=== PATIENT | female | born 1980 | race Caucasian/White ===

== ENCOUNTER 2018-08-10 21:38 | Emergency (ER) | payer MEDICAID, SELFPAY ==
[2018-08-10] VITALS (15 sets, daily range): BP systolic 103–144; BP diastolic 54–98; PULSE 77–102; RESP 4–21; TEMP 36.7–37; O2SAT 98–100
--- NOTE | 2018-08-10 21:43 | W.ED.GENAD ---
Discharge Plan Disposition Patient Disposition: HOME Condition: Stable Discharge Details Chief Complaint: Allergic Clinical Impression: Anaphylaxis Primary Care Provider: Caroline Andrade ED Provider: Otis Camejo Home Meds and New Rx's Prescriptions: New prednisone 20 mg tablet 60 mg PO DAILY 4 Days Qty: 12 RF: 0 Continued pantoprazole 40 mg Tablet,Delayed Release (Dr/Ec) 40 mg PO DAILY RF: 0 Discharge Instructions Instructions: Anaphylaxis (ED) Additional Instructions: you were treated for anaphylaxis likely from something in your food use your epi pen if you have difficulty breathing or abdominal pain/vomit with itching or a rash and return to the emergency department follow up with your primary care provider within a week and discuss having allergy testing you can take benadryl as needed for itching sensations, follow dosing in structions on packaging Medical Decision Making 37 yo female who has multiple food allergies comes in with chief complaint of dyspnea, feeling like throat closing and itching all over. She did not have her epi pen so came here. she has diffuse wheezing bilaterally on exam, denies vomit, doesn't have a rash but is itching all over, no drooling and is able to talk. Suspect anaphylaxis, will tx with IM epi, albuterol, steroids, h2 blockers and diphenydramine and monitor. pt feeling better, breathing improved and wheezing all gone, will continue to monitor pt remains stable, talkingin full sentences, normal respirations now. will continue to monitor pt remains stable, normal vitals and lung exam and speaking in full sentences. She has her epi pen now and would like d/c which I feel is reasonable. Will d/c home and advised f/u with pcp and return precautions Differential Diagnosis anaphylaxis, asthma HPI General Mode of arrival: ambulatory. Date/Time Provider Initiated Documentation: 08/10/18 21:39. Limitations to Documentation: no limitations. Information obtained by: patient. History of Present Illness 37 year old F presents to the emergency department with the chief complaint of difficulty breathing, described as moderate, Patient started experiencing this hour(s) (1) and it has been constant. No relieving factors improve symptom(s), No exacerbating factors reported . Patient notes other (itching). Patient did receive the following treatments prior to arrival, none Related Data Home Medications Medication Instructions Recorded Confirmed pantoprazole 40 mg PO DAILY 06/11/19 06/11/19 prednisone 60 mg PO DAILY 4 Days #12 tab 08/10/18 Previous Rx's Medication Instructions Recorded prednisone 60 mg PO DAILY 4 Days #12 tab 08/10/18 Review of Systems Review of Systems All systems reviewed & are unremarkable except as noted in HPI and below Constitutional Denies chills, Denies fever(s) and Denies weakness Gastrointestinal Denies vomiting Integumentary/Breasts Denies rash Neurologic Denies weakness PFSH Medical History GERD (gastroesophageal reflux disease) (Chronic) Social History Smoking/Tobacco Use Status: Current every day Tobacco Type: cigarettes Smoking cigarettes per day: 6 Alcohol Intake: former Drug use: Never Substance use type: does not use Do you feel safe at home: Yes Do you feel safe in your relationship?: Yes Exam Const General: other (dyspnea, wheezing) Orientation: alert HENMT Head: normal to inspection Ears: external ears normal General nose exam: external nose normal Mouth: moist mucous membranes Eyes General: appearance normal, both eyes and all related structures Neck Neck: normal visual inspection Resp Effort & Inspection: audible wheezes Cardio Jugular venous pressure: no JVD Skin General skin exam: no rashes or lesions noted Neuro General: alert and oriented x3 Extrem General: normal to inspection Psych Mental Status: mental status grossly normal Critical Care Time Critical Care Time: Yes Total Critical Care Time: 60 (minutes) Attestation: time spent administering IM epinephrine, hd monitoring and frequent reassessment in a patient with anaphylaxis and potential to deteriorate at any time
--- NOTE | 2018-08-10 21:46 | ED.GENADUL_ITS ---
Discharge Plan Disposition Patient Disposition: HOME Condition: Stable Discharge Details Chief Complaint: Allergic Clinical Impression: Anaphylaxis Primary Care Provider: Caroline Andrade ED Provider: Otis Camejo Home Meds and New Rx's Prescriptions: New prednisone 20 mg tablet 60 mg PO DAILY 4 Days Qty: 12 RF: 0 Continued pantoprazole 40 mg Tablet,Delayed Release (Dr/Ec) 40 mg PO DAILY RF: 0 Discharge Instructions Instructions: Anaphylaxis (ED) Additional Instructions: you were treated for anaphylaxis likely from something in your food use your epi pen if you have difficulty breathing or abdominal pain/vomit with itching or a rash and return to the emergency department follow up with your primary care provider within a week and discuss having allergy testing you can take benadryl as needed for itching sensations, follow dosing in structions on packaging Medical Decision Making 37 yo female who has multiple food allergies comes in with chief complaint of dyspnea, feeling like throat closing and itching all over. She did not have her epi pen so came here. she has diffuse wheezing bilaterally on exam, denies vomit, doesn't have a rash but is itching all over, no drooling and is able to talk. Suspect anaphylaxis, will tx with IM epi, albuterol, steroids, h2 blockers and diphenydramine and monitor. pt feeling better, breathing improved and wheezing all gone, will continue to monitor pt remains stable, talkingin full sentences, normal respirations now. will continue to monitor pt remains stable, normal vitals and lung exam and speaking in full sentences. She has her epi pen now and would like d/c which I feel is reasonable. Will d/c home and advised f/u with pcp and return precautions Differential Diagnosis anaphylaxis, asthma HPI General Mode of arrival: ambulatory . Date/Time Provider Initiated Documentation: 08/10/18 21:39 . Limitations to Documentation: no limitations . Information obtained by: patient . History of Present Illness 37 year old F presents to the emergency department with the chief complaint of difficulty breathing, described as moderate, Patient started experiencing this hour(s) (1) and it has been constant. No relieving factors improve symptom(s), No exacerbating factors reported . Patient notes other (itching). Patient did receive the following treatments prior to arrival, none Related Data Home Medications Medication Instructions Recorded Confirmed pantoprazole 40 mg PO DAILY 06/11/19 06/11/19 prednisone 60 mg PO DAILY 4 Days #12 tab 08/10/18 Previous Rx's Medication Instructions Recorded prednisone 60 mg PO DAILY 4 Days #12 tab 08/10/18 Review of Systems Review of Systems All systems reviewed & are unremarkable except as noted in HPI and below Constitutional Denies chills, Denies fever(s) and Denies weakness Gastrointestinal Denies vomiting Integumentary/Breasts Denies rash Neurologic Denies weakness PFSH Medical History GERD (gastroesophageal reflux disease) (Chronic) Social History Smoking/Tobacco Use Status: Current every day Tobacco Type: cigarettes Smoking cigarettes per day: 6 Alcohol Intake: former Drug use: Never Substance use type: does not use Do you feel safe at home: Yes Do you feel safe in your relationship?: Yes Exam Const General: other (dyspnea, wheezing) Orientation: alert HENMT Head: normal to inspection Ears: external ears normal General nose exam: external nose normal Mouth: moist mucous membranes Eyes General: appearance normal, both eyes and all related structures Neck Neck: normal visual inspection Resp Effort & Inspection: audible wheezes Cardio Jugular venous pressure: no JVD Skin General skin exam: no rashes or lesions noted Neuro General: alert and oriented x3 Extrem General: normal to inspection Psych Mental Status: mental status grossly normal Critical Care Time Critical Care Time: Yes Total Critical Care Time: 60 (minutes) Attestation: time spent administering IM epinephrine, hd monitoring and frequent reassessment in a patient with anaphylaxis and potential to deteriorate at any time
[2018-08-10] MEDS: Normal Saline 1,000 ML 1000 ML IV (21:47)
[2018-08-10] MEDS: methylPREDNISolone SUCC 125 MG VIAL IVP (21:47)
[2018-08-10] MEDS: diphenhydrAMINE 50 MG/ML VIAL 25 MG IVP (21:48)
[2018-08-10] MEDS: EPINEPHrine 1 MG/ML AMP pres-free 0.3 MG IM (21:49)
[2018-08-10] MEDS: Albuterol 2.5 MG/3 ML INH SOLN VIAL UPD (21:51)
[2018-08-10] MEDS: Albuterol 2.5 MG/3 ML INH SOLN VIAL 10 MG UPD (23:25)
== END 2018-08-10 23:31 | disposition home or self-care (01) ==
PROVIDERS: Emergency Provider Emergency Medicine; PCP Nurse Practitioner Family
DX: T78.00XA Anaphylactic reaction due to unspecified food, initial encounter (principal)
CPT/HCPCS: 94640; 96361; 96365; 96372; 96375; 99284; J0171; J1200; J2930; J7613

== ENCOUNTER 2019-05-31 01:24 | Outpatient (CLI) | payer SELFPAY ==
[2019-06-03 14:00] LABS: COVID-19 RT-PCR Result Not Detected (NotDetected)
== END 2019-05-31 01:44 ==
PROVIDERS: PCP Nurse Practitioner Family; Visit Provider Family Medicine
DX: Z20.828 Contact with and (suspected) exposure to other viral communicable diseases (principal)
CPT/HCPCS: U0003

== ENCOUNTER 2020-10-23 02:49 | Emergency (ER) | payer OTHER, SELFPAY ==
[2020-10-23 02:55] VITALS: BP 137/93; PULSE 85; RESP 24; TEMP 36.4; O2SAT 97
--- NOTE | 2020-10-23 03:00 | DI.RAD_ITS ---
Exam(s) XR PORTABLE CHEST AP EXAM: XR PORTABLE CHEST AP CLINICAL HISTORY: cough, sob. TECHNIQUE: 2D digital imaging was performed. COMPARISON: No exams were available for comparison FINDINGS: Heart size is normal. The mediastinum is not widened. Lungs are clear. No infiltrates nor obvious pleural effusions. IMPRESSION: No acute pulmonary findings on this single AP portable view of the chest. DATA REPOSITORY: RADIATION DOSE DELIVERED: All CT scans at this facility use at least one of these dose optimization techniques: automated exposure control; mA and/or kV adjustment per patient size (includes targeted e xams where dose is matched to clinical indication); or iterative reconstruction.
[2020-10-23] MEDS: Pantoprazole 40 MG TABCR PO (03:10)
[2020-10-23] MEDS: predniSONE 20 MG TAB 60 MG PO (03:10)
[2020-10-23 03:11] VITALS: PULSE 78; RESP 4; O2SAT 98
[2020-10-23] MEDS: Albuterol/Ipratropium 3 ML UPD VIAL 9 ML UPD (03:11)
[2020-10-23 03:41] VITALS: RESP 1
[2020-10-23 04:04] LABS: COVID-19 PCR Negative (Negative)
--- NOTE | 2020-10-23 04:18 | ED.GENADUL_ITS ---
Discharge Plan Disposition Patient Disposition: HOME Condition: Good Discharge Details Clinical Impression: Asthma exacerbation Primary Care Provider: Caroline Andrade ED Provider: Micheal Ibrahim Home Meds and New Rx's Prescriptions: New pantoprazole [Protonix] 40 mg tablet,delayed release (DR/EC) 40 mg PO DAILY 90 Days Qty: 90 RF: 0 prednisone 50 MG tablet 50 mg PO DAILY Qty: 5 RF: 0 Discontinued albuterol sulfate [ProAir HFA] 90 mcg/actuation Hfa Aerosol Inhaler 2 puff INHALATION QID PRNRF: 0 pantoprazole 40 mg Tablet,Delayed Release (Dr/Ec) 40 mg PO DAILY RF: 0 Discharge Instructions Instructions: Asthma (ED) Additional Instructions: At this time I believe that your asthma is worsened by your reflux. Please take the Protonix as directed. Avoid any spicy, tomato-based, or citrus-based foods as this can worsen reflux. Please take the steroid medication as directed. Please use your inhaler, 2 puffs every 4-6 hours as needed. The steroid in the stomach acid medication have been sent to your pharmacy on file in [place]. We will help start the process for a new primary care provider for you. You will be contacted by their office for an appointment date. If you notice any worsening of your symptoms, or any new symptoms such as vomiting, diarrhea, fever, chills, shortness of breath, chest pain, numbness, weakness, or fainting , please return immediately to the emergency department for reevaluation. Please follow up with your primary care provider as soon as possible for reassessment and reevaluation. As always, it was a pleasure participating in your medical care today. Discharge Data Discharge Date/Time-TO BE ENTERED AT DEPARTURE: 10/23/20 04:50 Medical Decision Making This is a 39-year-old female with past medical history of asthma and tobacco use who presents today for asthma exacerbation symptoms. Patient states that for the last few days she has been mildly wheezy. She does not have any inhalers at home. Then this evening out of sleep she woke up short of breath, gasping. She has noticed increased worsening of her reflux as of late, but denies any fever or chills, productive cough, vomiting, diarrhea or chest pain. She has been vaccinated against Covid. She does still smoke tobacco regularly. No other complaints at this time. No other modifying factors. Physical exam demonstrates diminished breath sounds throughout, notable wheeze worse on the left than the right. No rhonchi. Oxygenation is good. We will check a Covid test, give steroids, omeprazole, and breathing treatment. Chest x-ray. Will monitor closely and reassess. 4:45 AM Chest x-ray unremarkable. Patient feeling much better after breathing treatments and steroids. I do suspect that the patient reflux/GERD is a component for her asthma exacerbations. We will start her on antiacid medication from use, give her an inhaler and spacer for home use, as well as the burst of steroids. We will help set up outpatient PCP for the patient. Covid test was negative here. Patient stable for discharge. I have extensively reviewed the treatment plan and discharge instructions with the patient. I have addressed all patient concerns at this time. The patient was made aware of what symptoms to monitor for that would warrant a return to the emergency department. Discussed the plan with the patient, they demonstrate verbal understanding and agreement with our assessment and plan at this time. The documentation in this chart was dictated using [employer] dictation software. Please excuse any dictation errors. FINDINGS: Lungs: Unremarkable. No consolidation. Pleural spaces: Unremarkable. No pleural effusion. No pneumothorax. Heart/Mediastinum: Unremarkable. No cardiomegaly. Bones/joints: Unremarkable. IMPRESSION: No acute findings. Thank you for allowing us to participate in the care of your patient. Dictated and Authenticated by: Nicanor Meier MD 10/23/2020 4:50 AM Eastern Time ([place] & [place]) HPI General Date/Time Provider Initiated Documentation: 10/23/20 02:50 . HPI Narrative: This is a 39-year-old female with past medical history of asthma and tobacco use who presents today for asthma exacerbation symptoms. Patient states that for the last few days she has been mildly wheezy. She does not have any inhalers at home. Then this evening out of sleep she woke up short of breath, gasping. She has noticed increased worsening of her reflux as of late, but denies any fever or chills, productive cough, vomiting, diarrhea or chest pain. She has been vaccinated against Covid. She does still smoke tobacco regularly. No other complaints at this time. No other modifying factors. Related Data Home Medications Medication Instructions Recorded Confirmed pantoprazole [Protonix] 40 mg PO DAILY 90 Days #90 tab 10/23/20 prednisone 50 mg PO DAILY #5 tab 10/23/20 Previous Rx's Medication Instructions Recorded pantoprazole [Protonix] 40 mg PO DAILY 90 Days #90 tab 10/23/20 prednisone 50 mg PO DAILY #5 tab 10/23/20 Allergies Allergy/AdvReac Type Severity Reaction Status Date / Time No Known Allergies Allergy Unverified 10/23/20 02:59 General Stated Complaint: RespSymp BABS: 3 Review of Systems All systems reviewed & are unremarkable except as noted in HPI and below PFSH Medical History GERD (gastroesophageal reflux disease) Social History Smoking/Tobacco Use Status: Current every day Tobacco Type: cigarettes Smoking risk assessment performed?: Yes Alcohol Intake: former Drug use: Never Substance use type: does not use Do you feel safe at home: Yes Do you feel safe in your relationship?: Yes Exam Narrative Exam Narrative: 1.Const: Well-nourished, Well-developed, appearing stated age 2.Eyes: PERRL, no conjunctival injection, and symmetrical lids. 3.ENT: Atraumatic external nose and ears. Moist MM. Neck: Symmetric, trachea m idline, No thyromegaly. 4.CVS: +S1/S2, No murmurs or gallops. Peripheral pulses 2+ and equal in all extremities. Brisk capillary refill in all extremities. 5.RESP: Diminished breath sounds throughout, notable wheezes throughout. Worse on the left than the right. 6.GI: Soft, Nontender/Nondistended, No hepatosplenomegaly. No guarding or rebound. 7.MSK: Normocephalic/Atraumatic, Extremities w/o deformity or ttp No cyanosis or clubbing, Normal movement of all extremities 8.Skin: Warm, Dry. No rashes or lesions. 9.Neuro: business solutions architect II-XII grossly intact. Sensation grossly intact, no focal n eurologic deficits. 10.Psych: (AAO) x3. Appropriate mood and affect Course Vital Signs Vital signs: Vital Signs Temperature 36.4 C L 10/23/20 02:55 Pulse 85 10/23/20 02:55 Respiratory Rate 24 08/24/21 02:55 Blood Pressure 137/93 H 10/23/20 02:55 Pulse Oximetry 97 10/23/20 02:55 Temperature 36.4 C L 10/23/20 02:55 Temperature Source Temporal Artery Scan 10/23/20 02:55 Pulse 78 10/23/20 03:11 Respiratory Rate 24 10/23/20 02:55 Respiratory Effort 10/23/20 02:57 Blood Pressure 137/93 H 10/23/20 02:55 Blood Pressure Position Sitting 10/23/20 02:55 Pulse Oximetry 98 10/23/20 03:11 Oxygen Delivery Method Room Air 10/23/20 03:11 Oxygen Flow Rate 0 10/23/20 03:11 Pain Level 0 10/23/20 02:55 Lab/Test Results Lab/Test Results: Laboratory Tests Range/Units 10/23/20 03:05 COVID-19 Source NASOPHARYX
[2020-10-23 04:27] VITALS: BP 118/70; PULSE 95; RESP 18; O2SAT 97
[2020-10-23] MEDS: Albuterol HFA 8 GM 60 PUFF INH IH (04:51)
--- NOTE | 2020-10-23 04:51 | DI.VRAD_ITS ---
PROCEDURE INFORMATION: Exam: XR Chest Exam date and time: 10/23/2020 3:01 AM Age: 39 years old Clinical indication: Cough and shortness of breath; Patient HX: Cough, SOB TECHNIQUE: Imaging protocol: XR of the chest. Views: 1 view. COMPARISON: No relevant prior studies available. FINDINGS: Lungs: Unremarkable. No consolidation. Pleural spaces: Unremarkable. No pleural effusion. No pneumothorax. Heart/Mediastinum: Unremarkable. No cardiomegaly. Bones/joints: Unremarkable. IMPRESSION: No acute findings. Dictated and Authenticated by: Nicanor Meier MD. Ordering:GAYLE Burton MD
--- NOTE | 2020-10-23 05:43 | NUR.NOTE ---
Nursing Note:referal sent5 to cm to est pcp 10/22/20
--- NOTE | 2020-10-25 14:02 | CMPROGNOTE_ITS ---
- If Service Date Differs Date of service: 10/25/20 Time of Service: 14:02 Care Management Progress Note Jojo is seen in the ED for asthma exacerbation. At the request of ED provider, CM coordinates a referral to Nereida Garcia aprn, of [facility], on-call provider, to assist Jojo in obtaining a follow up appointment and in establishing care with a PCP.
== END 2020-10-23 04:50 | disposition home or self-care (01) ==
LOC: ER 04:39
PROVIDERS: Emergency Provider Student in an Organized Health Care Education/Training Program; PCP Nurse Practitioner Family
DX: J45.901 Unspecified asthma with (acute) exacerbation (principal); K21.9 Gastro-esophageal reflux disease without esophagitis; F17.210 Nicotine dependence, cigarettes, uncomplicated; Z20.822 Contact with and (suspected) exposure to COVID-19; Z03.818 Encounter for observation for suspected exposure to other biological agents ruled out
CPT/HCPCS: 87635; 94640; 99283; 71045; 99284; J7512; J7620

== ENCOUNTER 2022-03-23 08:14 | Emergency (ER) | payer MEDICAID, SELFPAY ==
[2022-03-23 08:19] VITALS: BP 117/73; PULSE 95; RESP 18; TEMP 37; O2SAT 98
[2022-03-23] MEDS: Bacitracin 30 GM TUBE TP (08:53)
[2022-03-23 08:59] VITALS: BP 101/68; PULSE 78; RESP 18; O2SAT 99
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
== END 2022-03-23 09:01 | disposition home or self-care (01) ==
PROVIDERS: Emergency Provider Physician Assistant; PCP Nurse Practitioner Family
DX: T25.222A Burn of second degree of left foot, initial encounter (principal); X12.XXXA Contact with other hot fluids, initial encounter
CPT/HCPCS: 16020

== ENCOUNTER 2022-06-10 18:53 | Outpatient (REF) | payer MEDICAID, SELFPAY ==
[2022-06-10 19:10] LABS: Abs Immature Grans 0.02 10^3/uL (0.0-0.06); Absolute Basophil Count 0.08 10^3/uL (0.0-0.2); Absolute Eosinophil Count 0.42 10^3/uL (0.0-0.7); Absolute Lymphocyte Count 2.57 10^3/uL (1.2-3.4); Absolute Monocyte Count 0.73 10^3/uL (0.1-0.8); Absolute Neutrophil Count 5.89 10^3/uL (1.2-6.7); Basophils % 0.8; Eosinophils % 4.3; HCT 39.2 % (36.0-46.0); HGB 14.2 g/dL (11.2-15.7); Immature Grans % 0.2; Lymphocytes % 26.5; MCHC 36.2 % (32.0-36.0); MCV 97 fL (80-95); MPV 12.8 fL (8.0-11.0); Monocytes % 7.5; Neutrophils % 60.7; Platelet Count 209 10^3/uL (130-400); RBC 4.06 10^6/uL (3.93-5.22); RDW 11.9 % (11.7-14.6); RDW-SD 42.7 fL; WBC 9.71 10^3/uL (4.4-10.8)
[2022-06-10 19:43] LABS: Vitamin D 25 Total 15.4 ng/mL (30-100)
[2022-06-10 19:46] LABS: ALT 27 U/L (14-59); AST 23 U/L (15-37); Albumin 3.7 g/dL (3.4-5.0); Alkaline Phosphatase 85 U/L (46-116); Anion Gap 8.8 mmol/L (3-11); BUN 14 mg/dL (7-18); Bilirubin, Total 0.2 mg/dL (0.2-1.0); CO2 25.2 mmol/L (21.0-32.0); CREATININE 0.7 mg/dL (0.55-1.02); Calcium 8.7 mg/dL (8.5-10.1); Chloride 103 mmol/L (98-107); Estimated GFR 111.36 (mL/min/1.73m2); Glucose 101 mg/dL (74-106); Potassium 4.1 mmol/L (3.5-5.1); Sodium 137 mmol/L (136-145); TSH (W/Ref FT4) 0.97 uIU/mL (0.36-3.74); Total Protein 7.1 g/dL (6.4-8.2); Vitamin B12 592 pg/mL (193-986)
[2022-06-10 19:47] LABS: Hemoglobin A1C 5.6 % (<5.7)
== END 2022-06-10 18:54 | disposition home or self-care (01) ==
LOC: NCHCN 18:53
PROVIDERS: PCP Nurse Practitioner Family; Visit Provider Registered Nurse
DX: F41.8 Other specified anxiety disorders (principal); Z13.1 Encounter for screening for diabetes mellitus; E55.9 Vitamin D deficiency, unspecified
CPT/HCPCS: 80053; 82306; 82607; 83036; 84443; 85025

== ENCOUNTER 2022-09-05 15:55 | Outpatient (REF) | payer MEDICAID, SELFPAY ==
[2022-09-05 21:44] LABS: COVID-19 PCR Negative (Negative); Influenza A PCR Negative (Negative); Influenza B PCR Negative (Negative); RSV PCR Negative (Negative)
[2022-09-05 21:49] LABS: Source Nasopharynx
== END 2022-09-05 15:56 | disposition home or self-care (01) ==
LOC: LBN 15:55
PROVIDERS: PCP Nurse Practitioner Family; Visit Provider Physician Assistant Medical
DX: R05.8 Other specified cough (principal); Z20.822 Contact with and (suspected) exposure to COVID-19
CPT/HCPCS: 87637

== ENCOUNTER 2022-11-10 01:54 | Outpatient (CLI) | payer MEDICAID, SELFPAY ==
[2022-11-10 15:10] LABS: Abs Immature Grans 0.04 10^3/uL (0.0-0.06); Absolute Basophil Count 0.07 10^3/uL (0.0-0.2); Absolute Eosinophil Count 0.46 10^3/uL (0.0-0.7); Absolute Monocyte Count 0.96 10^3/uL (0.1-0.8); Absolute Neutrophil Count 6.63 10^3/uL (1.2-6.7); Basophils % 0.6; Eosinophils % 3.9; HCT 38.7 % (36.0-46.0); HGB 13.4 g/dL (11.2-15.7); Immature Grans % 0.3; Lymphocytes % 30.3; MCH 32.9 pg (27.0-33.0); MCHC 34.6 % (32.0-36.0); MCV 95 fL (80-95); MPV 11.1 fL (8.0-11.0); Monocytes % 8.2; Neutrophils % 56.7; Platelet Count 254 10^3/uL (130-400); RBC 4.07 10^6/uL (3.93-5.22); RDW 12.4 % (11.7-14.6); RDW-SD 43.7 fL
[2022-11-10 15:12] LABS: Absolute Lymphocyte Count 3.55 10^3/uL (1.2-3.4)
[2022-11-12 09:21] LABS: IgE 105 IU/mL (<158)
== END 2022-11-10 01:55 | disposition home or self-care (01) ==
LOC: LBO 01:54
PROVIDERS: PCP Nurse Practitioner Family; Visit Provider Student in an Organized Health Care Education/Training Program
DX: J45.909 Unspecified asthma, uncomplicated (principal)
CPT/HCPCS: 36415; 82785; 85025

== ENCOUNTER 2022-11-10 02:09 | Outpatient (CLI) | payer MEDICAID, SELFPAY ==
[2022-11-10] MEDS: Albuterol HFA 18 GM 200 PUFF INH IH (16:48)
[2022-11-10] MEDS: Inhaler, Assist Device 1 EACH MC (16:49)
--- NOTE | 2022-11-11 07:53 | PFT_ITS ---
Date of service: 11/10/22 Time of Service: 15:07 Pulmonary Function Test Result Indications: Asthma Interpretation Spirometry: There is moderate airflow limitation. There is a significant bronchodilator response. Lung Volumes: There is air trapping Diffusion Capacity: Normal diffusion Airway Pressure: Normal airways resistance Impression Moderate airflow obstruction with a bronchodilator response. There is air tra pping and a normal diffusion. This could represent uncontrolled asthma, asthma- COPD overlap or chronic bronchitis. Clinical Correlation therefore is recommended.
== END 2022-11-10 02:10 | disposition home or self-care (01) ==
LOC: RT 02:09
PROVIDERS: PCP Nurse Practitioner Family; Visit Provider Student in an Organized Health Care Education/Training Program
DX: J45.909 Unspecified asthma, uncomplicated (principal)
CPT/HCPCS: 94060; 94726; 94729

== ENCOUNTER 2022-11-25 19:16 | Outpatient (REF) | payer MEDICAID, SELFPAY ==
[2022-11-25 20:28] LABS: Source Nasal/Nares
[2022-11-25 21:23] LABS: COVID-19 PCR Negative (Negative)
== END 2022-11-25 19:17 | disposition home or self-care (01) ==
LOC: NCHCN 19:16
PROVIDERS: PCP Nurse Practitioner Family; Visit Provider Nurse Practitioner Family
DX: J02.9 Acute pharyngitis, unspecified (principal); Z20.822 Contact with and (suspected) exposure to COVID-19
CPT/HCPCS: 87635

== ENCOUNTER 2023-02-27 20:31 | Outpatient (REF) | payer MEDICAID, SELFPAY | END 2023-02-27 20:32 | disposition home or self-care (01) | LOC: LBN 20:31 | PROVIDERS: PCP Nurse Practitioner Family; Visit Provider Physician Assistant Medical | DX: U07.1 COVID-19 (principal) | CPT/HCPCS: 87070 ==

== ENCOUNTER 2023-04-15 16:06 | Outpatient (REF) | payer MEDICAID, SELFPAY ==
[2023-04-15 14:43] LABS: Source Nasal/Nares
[2023-04-15 17:27] LABS: COVID-19 PCR Negative (Negative)
== END 2023-04-15 16:07 | disposition home or self-care (01) ==
LOC: LBN 16:06
PROVIDERS: PCP Nurse Practitioner Family; Referring Provider Nurse Practitioner Family; Visit Provider Nurse Practitioner Family
DX: J02.9 Acute pharyngitis, unspecified (principal); Z11.52 Encounter for screening for COVID-19
CPT/HCPCS: 87635

== ENCOUNTER 2023-05-01 16:37 | Outpatient (REF) | payer MEDICAID, SELFPAY ==
[2023-05-01 19:35] LABS: Abs Immature Grans 0.02 10^3/uL (0.0-0.06); Absolute Basophil Count 0.05 10^3/uL (0.0-0.2); Absolute Eosinophil Count 0.29 10^3/uL (0.0-0.7); Absolute Lymphocyte Count 3.26 10^3/uL (1.2-3.4); Absolute Monocyte Count 0.89 10^3/uL (0.1-0.8); Absolute Neutrophil Count 5.76 10^3/uL (1.2-6.7); Basophils % 0.5; Eosinophils % 2.8; HCT 38.1 % (36.0-46.0); HGB 13.1 g/dL (11.2-15.7); Immature Grans % 0.2; Lymphocytes % 31.7; MCH 32.6 pg (27.0-33.0); MCHC 34.4 % (32.0-36.0); MCV 95 fL (80-95); MPV 12.7 fL (8.0-11.0); Monocytes % 8.7; Neutrophils % 56.1; Platelet Count 249 10^3/uL (130-400); RBC 4.02 10^6/uL (3.93-5.22); RDW 13.1 % (11.7-14.6); RDW-SD 46.3 fL; WBC 10.27 10^3/uL (4.4-10.8)
[2023-05-01 19:53] LABS: ALT 26 U/L (14-59); AST 22 U/L (15-37); Albumin 3.4 g/dL (3.4-5.0); Alkaline Phosphatase 88 U/L (46-116); Anion Gap 11.5 mmol/L (3-11); BUN 10 mg/dL (7-18); Bilirubin, Total 0.2 mg/dL (0.2-1.0); CO2 22.5 mmol/L (21.0-32.0); CREATININE 0.8 mg/dL (0.55-1.02); Calcium 8.4 mg/dL (8.5-10.1); Chloride 104 mmol/L (98-107); Estimated GFR 94.28 (mL/min/1.73m2); FREE T4 0.87 ng/dL (0.76-1.46); Glucose 105 mg/dL (74-106); Potassium 3.9 mmol/L (3.5-5.1); Sodium 138 mmol/L (136-145); TSH 1.25 uIU/Ml (0.36-3.74); Total Protein 6.8 g/dL (6.4-8.2)
== END 2023-05-01 16:38 | disposition home or self-care (01) ==
LOC: LBN 16:37
PROVIDERS: PCP Nurse Practitioner Family; Visit Provider Nurse Practitioner Family
DX: R53.83 Other fatigue (principal); R53.81 Other malaise; R19.7 Diarrhea, unspecified
CPT/HCPCS: 80053; 84439; 84443; 85025

== ENCOUNTER → 2023-07-20 04:52 | Outpatient (CLI) | payer MEDICAID, SELFPAY ==
--- NOTE | 2023-07-20 | DI.US_ITS ---
Exam(s) US ABDOMEN LIMITED EXAM: US ABDOMEN LIMITED CLINICAL HISTORY: RT UPPER QUAD PAIN, R10.11 TECHNIQUE: Ultrasound abdomen performed using standard protocol. COMPARISON: No exams were available for comparison FINDINGS: There is no ascites evident. LIVER: There are no hepatic lesions evident nor dilatation of intrahepatic ducts. GALLBLADDER/BILIARY: There are no gallstones. No gallbladder wall edema nor pericholecystic fluid. The common hepatic duct isnot dilated, measuring 2mm at the level of amirah hepatis. PANCREAS: There is no evidence of pancreatic mass nor dilatation of the pancreatic duct. RIGHT KIDNEY:No evidence of solid mass, calculus, nor hydronephrosis. No cortical cysts evident. IMPRESSION: 1. No evidence of cholelithiasis nor dilatation of the biliary tree. 2. No other significant ultrasound findings in the right upper quadrant. 3. There is no ascites. DATA REPOSITORY:
== END ==
PROVIDERS: PCP Nurse Practitioner Family; Visit Provider Nurse Practitioner Family
DX: R10.11 Right upper quadrant pain (principal)
CPT/HCPCS: 76705

== ENCOUNTER 2024-07-04 15:11 | Outpatient (REF) | payer BC, SELFPAY ==
[2024-07-04 22:19] LABS: Calculated LDL 101 mg/dL (<100); Cholesterol 209 mg/dL (<200); HDL Cholesterol 91 mg/dL (>or=50); Triglyceride 89 mg/dL (<150)
== END 2024-07-04 15:12 | disposition home or self-care (01) ==
LOC: NCHCN 15:11
PROVIDERS: PCP Nurse Practitioner Family; Visit Provider Nurse Practitioner Family
DX: Z13.6 Encounter for screening for cardiovascular disorders (principal)
CPT/HCPCS: 80061

== ENCOUNTER 2024-07-15 00:16 | Outpatient (CLI) | payer BC, SELFPAY ==
--- NOTE | 2024-07-15 | DI.RAD_ITS ---
Exam(s) XR HIP PELVIS ADULT BL EXAM: XR HIP PELVIS ADULT BL CLINICAL HISTORY: Pain in left hip, M25.552, associated back pain, bilateral for comparison. TECHNIQUE: 2D digital imaging was performed. COMPARISON: No exams were available for comparison FINDINGS: 3 views No evidence of pelvic nor hip fractures. SI joints appear unremarkable. No hip joint space narrowin g nor osteophytes nor degenerative subarticular cysts in either hip. Bone density is normal. Lucenc y in the upper left femoral neck is probably benign synovial pit. IMPRESSION: No acute osseous findings in the hips. Benign appearing peripherally sclerotic cystic finding in the upper left femoral neck, probably synovial pits. DATA REPOSITORY: RADIATION DOSE DELIVERED:
== END 2024-07-15 00:36 ==
LOC: DI 00:16
PROVIDERS: PCP Nurse Practitioner Family; Visit Provider Nurse Practitioner Family
DX: M25.552 Pain in left hip (principal)
CPT/HCPCS: 73521

== ENCOUNTER 2025-01-19 13:41 | Outpatient (REF) | payer BC, SELFPAY ==
[2025-01-19 15:59] LABS: Anion Gap 7.4 mmol/L (3-11); BUN 12 mg/dL (9-23); CO2 26.6 mmol/L (20.0-31.0); Calcium 9.6 mg/dL (8.3-10.6); Chloride 104 mmol/L (98-107); Glucose 91 mg/dL (74-106); Potassium 4.6 mmol/L (3.5-5.1); Sodium 138 mmol/L (136-145); Vitamin B12 447 pg/mL (211-911)
[2025-01-19 16:00] LABS: Magnesium 2.0 mg/dL (1.6-2.6)
== END 2025-01-19 13:42 | disposition home or self-care (01) ==
LOC: NCHCN 13:41
PROVIDERS: PCP Nurse Practitioner Family; Visit Provider Nurse Practitioner Family
DX: K21.9 Gastro-esophageal reflux disease without esophagitis (principal)
CPT/HCPCS: 80048; 82607; 83735